=== PATIENT | female | born 1960 | race Caucasian/White ===

== ENCOUNTER 2020-01-10 19:18 | Inpatient (IN) ==
[2020-01-10] MEDS ORDERED: 0.9 % SODIUM CHLORIDE 1,000 ML IV ONE ×2 (19:59→21:47)
--- NOTE | 2020-01-10 20:08 | Emergency Department Note ---
HPI General Chief complaint: Cold/Flu Symptoms Stated complaint: fevers, high BP, and decreased appetite, headache Time Seen by Provider: 01/10/20 19:22 Source: patient Mode of arrival: ambulatory Limitations: no limitations History of Present Illness HPI Narrative: Narrative: 59-year-old female patient presents emergency department with chief complaint of subjective fevers at home, generalized malaise, loss of appetite, and sleeplessness. Patient tells me she felt feverish at home and took her temperature. She noticed it was 100. She is afebrile in triage now at 98.5. Patient tells me she recently lost her of 16 years on 12/07. Since that time she has had decreased appetite and inability to sleep. She has been in contact her primary care provider told her to use melatonin. She is tried this without success. She denies any known exposure to the novel coronavirus. She does admit to daily smoking. This is increased to 1.5 packs daily since the loss of her . ROS: Denies systemic illness, sweats, or chills. Denies headaches, tinnitus, or vision changes. Denies runny nose, sinus congestion, or cough. Denies shortness of breath. Denies retrosternal chest pain or palpitations. Denies abdominal pain, nausea, vomiting, or diarrhea. Denies dysuria, hematuria, urinary frequency, or urinary urgency. Denies generalized or focal weakness. Related Data Home Medications Medication Instructions Recorded Confirmed calcium-mag oxide-vitamin D3 250 2 cap PO QDAY 10/07/15 01/10/20 mg-125 mg-200 unit capsule cholecalciferol (vitamin D3) 50 2,000 unit PO QDAY 10/07/15 01/10/20 mcg (2,000 unit) capsule milk thistle 175 mg capsule 350 mg PO QDAY 10/07/15 01/10/20 kmjvhwtflbqe-impoauim-lyfxac 1 tab PO QDAY 10/07/15 01/10/20 naproxen sodium 220 mg tablet 440 mg PO Q4H tab 10/10/15 01/10/20 Previous Rx's Medication Instructions Recorded albuterol sulfate 90 mcg/actuation 2 puff INHALATION Q4-6HP PRN #1 04/04/19 aerosol inhaler inhaler ferrous sulfate 325 mg (65 mg 325 mg PO QDAY #90 tab 10/31/19 iron) tablet lisinopril 5 mg tablet 5 mg PO QDAY #90 tab 10/05/19 omeprazole 20 mg capsule,delayed 20 mg PO QDAY #90 cap 12/31/19 release simvastatin 10 mg tablet 10 mg PO QPM #90 tab 12/31/19 Allergies Allergy/AdvReac Type Severity Reaction Status Date / Time No Known Drug Allergies Allergy Verified 04/04/19 15:15 Review of Systems ROS ROS Narrative: Narrative: All systems ED: reviewed and negative except as stated. [facility] Narrative Patient History Narrative: Narrative: Medical/Surgical/Family History All Active Problems (Updated 01/10/20 @ 22:22 by Sonu Bernard PA-C) Fracture of clavicle (Acute) Back pain (Acute) Thoracic back pain (Acute) COPD (chronic obstructive pulmonary disease) (Acute) Fracture of rib (Acute) Hyponatremia (Acute) Hypokalemia (Acute) Adult failure to thrive (Acute) Grieving (Acute) Heart murmur (Chronic) Encounter for smoking cessation counseling (Acute) Insomnia (Chronic) Hot flashes (Chronic) Depression (Chronic) HLD (hyperlipidemia) (Chronic) High triglycerides (Acute) Hypertension (Acute) Diarrhea (Acute) Low back pain (Acute) Tobacco abuse (Chronic) Left leg pain (Chronic) Hip pain, left (Chronic) Weakness (Chronic) Osteoporosis (Chronic) Joint pain (Chronic) Muscle pain (Chronic) Arthritis (Chronic) Anemia (Chronic) Acid reflux (Chronic) Medical History Abdominal pain, left lower quadrant (Resolved) Acid reflux (Chronic) 2014 Anemia (Chronic) Arthritis (Chronic) 2010 Depression (Chronic) Gallbladder problem (Resolved) 2013 removed Hip pain, left (Chronic) 2015 HLD (hyperlipidemia) (Chronic) Hot flashes (Chronic) Insomnia (Chronic) Joint pain (Chronic) 2010 Left leg pain (Chronic) 2015 Muscle pain (Chronic) 2011 Osteoporosis (Chronic) 2009, dexa 2015, continue calcium and vitamin D Tobacco abuse (Chronic) Weakness (Chronic) 2014 Surgical History H/O colonoscopy (Acute) 12/2015 with hyperplastic polyp removal, repeat 10 years H/O hand surgery (Chronic) 2014 Finger surgery History of cholecystectomy (Chronic) 2013 History of hernia surgery (Chronic) 1963 Hx of shoulder surgery (Chronic) 2009 S/P wrist surgery (Chronic) 2015 left wrist Family History Sister Arthritis Essential hypertension Mother Malignant neoplasm of breast Grandfather Malignant neoplasm of brain Malignant neoplasm of throat Grandmother-maternal Diabetes mellitus Father Essential hypertension Aunt Cerebrovascular accident (CVA) Social History Smoking Status: Current every day smoker Alcohol Intake Frequency: a few times a week Substance Use: marijuana Exam Narrative Narrative: Narrative: General Limitations: no limitations General appearance: other (Well-developed, chronically ill and frail appearing 59-year-old female patient sitting upright on the emergency room [facility] in no acute respiratory distress.) Head Head: atraumatic and normocephalic Eye Eye: Present normal appearance, PERRL and EOMI; Absent scleral icterus and co njunctival injection ENT ENT: Present normal oropharynx and mucous membranes moist Neck Neck: Present trachea midline; Absent lymphadenopathy Chest Chest: Present symmetric chest wall rise Respiratory Respiratory: Present prolonged expiratory phase and decreased breath sounds (Rhonchi heard throughout the chest.); Absent normal lung sounds bilaterally, respiratory distress, rales/crackles, wheezes, stridor and accessory muscle use Cardiovascular Cardiovascular: Present regular rate, normal rhythm and systolic murmur; Absent diastolic murmur Adbominal Abdominal: Present soft; Absent distention, tenderness, guarding, rebound, rigidity, organomegaly and mass Extremities Extremities: Present normal inspection, full ROM and normal capillary refill; Absent pedal edema Neurological Neurological: Present alert and oriented X3 Psychiatric Psychiatric: Present normal affect, depressed and tearful Skin Skin: Present warm, dry and normal color Course Course Course Narrative: When questioned patient chief complaint appears to be her inability to sleep or eat since the loss of her . However she does have subjective fevers at home. This, coupled with her history of smoking, I am going to order a 2 view chest x-ray and screening laboratory studies. Patient was provided normal saline as a 1000 mL bolus. Reevaluation(s) Reevaluation #1: A review of the patient's diagnostics thus far show the following: CMP sodium 113, potassium 3.2, chloride 78, CO2 21, BUN 2, creatinine 0.4, all others normal limits. After reviewing the available data I discussed this case with my collaborative physician (Dr. Dominguez) at this time Dr. Dominguez recommended starting normal saline. Patient will likely need to be admitted to the hospital for further evaluation and management. After 1 L of fluid repeat chemistry panel showed improved sodium to 118. It is now shift change and I have given full patient report to my collaborating physician who has assumed the patient healthcare. All further treatment decisions, modalities, and ultimate patient disposition will be carried out by Dr. Dominguez. Time: 22:20 Vital Signs Vital signs: Vital Signs Temperature 98.5 F 01/10/20 19:20 Pulse Rate 103 H 01/10/20 19:20 Respiratory Rate 18 01/10/20 19:20 Blood Pressure 163/91 01/10/20 19:20 Pulse Oximetry (%) 98 01/10/20 19:20 Temperature 98.5 F 01/10/20 19:20 Pulse Rate 88 01/10/20 21:28 Respiratory Rate 18 01/10/20 20:43 Blood Pressure 146/86 01/10/20 21:28 Pulse Oximetry (%) 96 01/10/20 21:28 MDM MDM Narrative Medical decision making narrative: Narrative: Lab Data Result diagrams: 01/10/20 20:16 01/10/20 20:16 Labs: Lab Results 01/10/20 Range/Units 20:16 Sodium 113 L* (133-145) mmol/L Potassium 3.2 L (3.3-5.1) mmol/L Chloride 78 L (96-108) mmol/L Carbon Dioxide 21 L (22-30) mmol/L Anion Gap 14.0 (8-16) BUN 2 L (6-20) mg/dl Creatinine 0.4 L (0.6-1.1) mg/dl GFR Calculation 114 Glucose 88 (70-105) mg/dL Calcium 9.1 (8.6-10.4) mg/dl Total Bilirubin 0.3 (0.0-1.0) mg/dL AST 23 (0-37) U/l ALT 17 (0-40) U/l Alkaline Phosphatase 83 (39-117) U/L Total Protein 6.9 (5.9-8.4) gm/dL Albumin 4.5 (3.2-5.2) gm/dL Globulin 2.4 (2.2-3.7) gm/dL Albumin/Globulin Ratio 1.9 (1.0-2.3) Discharge Plan Patient/Caregiver Discharge Instructions Pt seen by PRIMARY CARE PROVIDER/PA only: No (Dr. Dominguez) Clinical Impression: Hyponatremia, Tobacco abuse, Hypokalemia, Adult failure to thrive, Grieving Patient Disposition: Still a Patient Condition: Fair Follow up with: Angie Pacheco DO [Primary Care Provider] - Prescriptions: No Action ferrous sulfate [Iron (ferrous sulfate)] 325 mg (65 mg iron) tablet 325 mg PO QDAY Qty: 90 RF: 0 lisinopril 5 mg tablet 5 mg PO QDAY Qty: 90 RF: 1 simvastatin 10 mg tablet 10 mg PO QPM Qty: 90 RF: 0 omeprazole 20 mg capsule,delayed release(DR/EC) 20 mg PO QDAY Qty: 90 RF: 1 albuterol sulfate 90 mcg/actuation HFA aerosol inhaler 2 puff INHALATION Q4-6HP PRN (Reason: Cough) Qty: 1 RF: 0 naproxen sodium [Aleve] 220 mg tablet 440 mg PO Q4H RF: 0 oouiwetzrrkk-fehrsuvo-ulnypm tablet 1 tab PO QDAY RF: 0 cholecalciferol (vitamin D3) 2,000 unit capsule 2,000 unit PO QDAY RF: 0 calcium-mag oxide-vitamin D3 250-125-200 mg-mg-unit capsule 2 cap PO QDAY RF: 0 milk thistle 175 mg capsule 350 mg PO QDAY RF: 0
[2020-01-10 21:10] LABS: ALT/SGPT 17 U/l (0-40); AST/SGOT 23 U/l (0-37); Albumin 4.5 gm/dL (3.2-5.2); Albumin/Globulin Ratio 1.9 (1.0-2.3); Alkaline Phosphatase 83 U/L (39-117); Bilirubin,Total 0.3 mg/dL (0.0-1.0); Blood Urea Nitrogen 2 mg/dl (6-20); Calcium 9.1 mg/dl (8.6-10.4); Carbon Dioxide 21 mmol/L (22-30); Globulin 2.4 gm/dL (2.2-3.7); Glomerular Filtration Rate 114; Glucose 88 mg/dL (70-105)
[2020-01-10 21:21] LABS: Chloride 78 mmol/L (96-108)
[2020-01-10 22:24] LABS: Basophils # (Auto) 0.02 K/mcL (0.00-0.30); Basophils % (Auto) 0.2 % (0.0-2.0); Eosinophils # (Auto) 0.02 K/mcL (0.00-0.70); Eosinophils % (Auto) 0.2 % (0.0-7.0); Granulocytes % (Auto) 59.1 % (38.0-78.0); Lymphocytes # (Auto) 2.39 K/mcL (1.50-4.80); Lymphocytes % (Auto) 29.5 % (15.5-49.0); Mean Corpuscular HGB Conc 31.6 g/dL (31.0-36.0); Mean Platelet Volume 10.6 fL (7.4-10.4); Monocytes # (Auto) 0.89 K/mcL (0.10-0.90); Platelet Count 181 K/mcL (140-440); WBC 8.1 K/mcL (4.50-11.00)
[2020-01-10] MEDS ORDERED: ONDANSETRON 4 MG/2 ML VIAL IV ONE (22:27)
[2020-01-10 22:31] LABS: POC Blood Urea Nitrogen < 3 mg/dl (6-20); POC CO2 19 mmol/L (22-30); POC Calcium, Ionized 1.08 mmol/L (1.16-1.32); POC Chloride 85 mmol/L (96-108); POC Creatinine 0.2 mg/dl (0.6-1.1); POC Glucose, Random 83 mg/dL (70-105); POC Potassium 3.2 mmol/L (3.3-5.1); POC Sodium 118 mmol/L (133-145)
--- NOTE | 2020-01-10 22:31 | Emergency Department Note ---
HPI General Chief complaint: Cold/Flu Symptoms Stated complaint: fevers, high BP, and decreased appetite, headache Time Seen by Provider: 01/10/20 19:22 Source: patient Mode of arrival: ambulatory Limitations: no limitations History of Present Illness HPI Narrative: Narrative:Patient is checked out to me at shift change by Sonu Bernard PA-C. I reviewed his note as well as discussed the patient with him.Agree with his evaluation Management and documentation Related Data Home Medications Medication Instructions Recorded Confirmed cholecalciferol (vitamin D3) 50 2,000 unit PO QDAY 10/07/15 01/11/20 mcg (2,000 unit) capsule milk thistle 175 mg capsule 350 mg PO QDAY 10/07/15 01/11/20 ibuprofen [Advil] 200 mg PO Q4-6HP PRN 01/11/20 01/11/20 mv-mn-folic ac-vit K-herb 289 1 tab PO DAILY 01/11/20 01/11/20 [Alive Once Daily Women 50 Plus] Previous Rx's Medication Instructions Recorded albuterol sulfate 90 mcg/actuation 2 puff INHALATION Q4-6HP PRN #1 04/04/19 aerosol inhaler inhaler ferrous sulfate 325 mg (65 mg 325 mg PO QDAY #90 tab 04/05/19 iron) tablet lisinopril 5 mg tablet 5 mg PO QDAY #90 tab 10/05/19 omeprazole 20 mg capsule,delayed 20 mg PO QDAY #90 cap 12/31/19 release simvastatin 10 mg tablet 10 mg PO QPM #90 tab 12/31/19 Allergies Allergy/AdvReac Type Severity Reaction Status Date / Time No Known Drug Allergies Allergy Verified 04/04/19 15:15 Review of Systems ROS ROS Narrative: Narrative: PFSH Narrative Patient History Narrative: Narrative: Medical/Surgical/Family History All Active Problems (Updated 01/10/20 @ 22:22 by Sonu Bernard PA-C) Fracture of clavicle (Acute) Back pain (Acute) Thoracic back pain (Acute) COPD (chronic obstructive pulmonary disease) (Acute) Fracture of rib (Acute) Hyponatremia (Acute) Hypokalemia (Acute) Adult failure to thrive (Acute) Grieving (Acute) Heart murmur (Chronic) Encounter for smoking cessation counseling (Acute) Insomnia (Chronic) Hot flashes (Chronic) Depression (Chronic) HLD (hyperlipidemia) (Chronic) High triglycerides (Acute) Hypertension (Acute) Diarrhea (Acute) Low back pain (Acute) Tobacco abuse (Chronic) Left leg pain (Chronic) Hip pain, left (Chronic) Weakness (Chronic) Osteoporosis (Chronic) Joint pain (Chronic) Muscle pain (Chronic) Arthritis (Chronic) Anemia (Chronic) Acid reflux (Chronic) Medical History Abdominal pain, left lower quadrant (Resolved) Acid reflux (Chronic) 2014 Anemia (Chronic) Arthritis (Chronic) 2010 Depression (Chronic) Gallbladder problem (Resolved) 2013 removed Hip pain, left (Chronic) 2015 HLD (hyperlipidemia) (Chronic) Hot flashes (Chronic) Insomnia (Chronic) Joint pain (Chronic) 2010 Left leg pain (Chronic) 2015 Muscle pain (Chronic) 2011 Osteoporosis (Chronic) 2009, dexa 2016, continue calcium and vitamin D Tobacco abuse (Chronic) Weakness (Chronic) 2014 Surgical History H/O colonoscopy (Acute) 12/2015 with hyperplastic polyp removal, repeat 10 years H/O hand surgery (Chronic) 2014 Finger surgery History of cholecystectomy (Chronic) 2013 History of hernia surgery (Chronic) 1963 Hx of shoulder surgery (Chronic) 2010 S/P wrist surgery (Chronic) 2015 left wrist Family History Sister Arthritis Essential hypertension Mother Malignant neoplasm of breast Grandfather Malignant neoplasm of brain Malignant neoplasm of throat Grandmother-maternal Diabetes mellitus Father Essential hypertension Aunt Cerebrovascular accident (CVA) Social History Smoking Status: Current every day smoker Alcohol Intake Frequency: a few times a week Substance Use: marijuana Exam Narrative Narrative: Narrative: General Limitations: no limitations General appearance: other (Well-developed, chronically ill and frail appearing 59-year-old female patient sitting [facility] no acute respiratory distress.) Course Vital Signs Vital signs: Vital Signs Temperature 98.5 F 01/10/20 19:20 Pulse Rate 103 H 01/10/20 19:20 Respiratory Rate 18 01/10/20 19:20 Blood Pressure 163/91 01/10/20 19:20 Pulse Oximetry (%) 98 08/06/20 19:20 Temperature 98.5 F 01/11/20 01:03 Pulse Rate 68 01/11/20 01:03 Respiratory Rate 18 01/11/20 01:03 Blood Pressure 163/91 01/11/20 01:03 Pulse Oximetry (%) 94 01/11/20 01:03 [facility] MDM Narrative Medical decision making narrative: Narrative:Taking checkout from Sonu Bernard PA-C - Ordered urine labs for fractional excretion of sodium, Magnesium. Patient will need to come in the hospital for further care and evaluation. She is already had 1 L of IV fluid. Suspect this is acute on chronic hyponatremia from malnutrition- Patient states that last time she had a good meal was probably 2 weeks ago We called out to Dr. Escobar, supervisor garage. Also called Dr. Delarosa, hospitalist. I discussed the case with him And he agreed except the patient for further care and evaluation in the hospital. He advised me to stop giving her fluid as her sodium had gone up to 118 on Recheck POC We Allowed the patient to eat a boxed lunch along with some Jell-O and soda. She states that she has not slept well in a long time. We will give her some Ambien to sleep in the hospital Lab Data Result diagrams: 01/10/20 20:16 01/10/20 20:16 Labs: Lab Results 01/10/20 01/10/20 01/10/20 Range/Units 20:16 20:16 21:38 WBC 8.1 (4.50-11.00) K/mcL RBC TNP Hgb 12.0 (11.2-15.7) g/dL Hct 38.0 (34.1-44.9) % POC Hct 33.0 L (36.0-48.0) % MCV TNP MCH TNP MCHC 31.6 (31.0-36.0) g/dL RDW TNP Plt Count 181 (140-440) K/mcL MPV 10.6 H (7.4-10.4) fL Gran % 59.1 (38.0-78.0) % Lymph % (Auto) 29.5 (15.5-49.0) % [place] % (Auto) 11.0 (1.0-12.0) % Eos % (Auto) 0.2 (0.0-7.0) % Baso % (Auto) 0.2 (0.0-2.0) % Gran # 4.77 (1.80-8.00) K/mcL Lymph # (Auto) 2.39 (1.50-4.80) K/mcL [place] # (Auto) 0.89 (0.10-0.90) K/mcL Eos # (Auto) 0.02 (0.00-0.70) K/mcL Baso # (Auto) 0.02 (0.00-0.30) K/mcL POC Sodium 118 L* (133-145) mmol/L Sodium 113 L* (133-145) mmol/L POC Potassium 3.2 L (3.3-5.1) mmol/L Potassium 3.2 L (3.3-5.1) mmol/L POC Chloride 85 L (96-108) mmol/L Chloride 78 L (96-108) mmol/L Carbon Dioxide 21 L (22-30) mmol/L POC Total CO2 19 L (22-30) mmol/L Anion Gap 14.0 (8-16) POC BUN < 3 L (6-20) mg/dl BUN 2 L (6-20) mg/dl Creatinine 0.4 L (0.6-1.1) mg/dl POC Creatinine 0.2 L (0.6-1.1) mg/dl GFR Calculation 114 Glucose 88 (70-105) mg/dL POC Glucose 83 (70-105) mg/dL Calcium 9.1 (8.6-10.4) mg/dl POC WB Ioniz Calcium 1.08 L (1.16-1.32) mmol/L Magnesium (1.6-2.5) mg/dL Total Bilirubin 0.3 (0.0-1.0) mg/dL AST 23 (0-37) U/l ALT 17 (0-40) U/l Alkaline Phosphatase 83 (39-117) U/L Total Protein 6.9 (5.9-8.4) gm/dL Albumin 4.5 (3.2-5.2) gm/dL Globulin 2.4 (2.2-3.7) gm/dL Albumin/Globulin Ratio 1.9 (1.0-2.3) Urine Color Urine Appearance Urine pH (5.0-9.0) Ur Specific [place] (1.000-1.035) Urine Protein (NEG) mg/dL Urine Glucose (UA) (NEG) mg/dL Urine Ketones (NEG) mg/dL Urine Occult Blood (<0.03) mg/dL Urine Nitrate (NEG) Urine Bilirubin (NEG) mg/dL Urine Urobilinogen (NEG) mg/dL Ur Leukocyte Esterase (NEG) /uL Urine RBC (0-1) /hpf Urine WBC (0-4) /hpf Ur Squamous Epith Cells (0-4) /hpf Urine Bacteria (0) /hpf Ur Culture Indicated? Ur Random Creatinine mg/dl Ur Random Sodium mmol/L 01/10/20 01/10/20 01/10/20 Range/Units 22:20 22:48 22:50 WBC (4.50-11.00) K/mcL RBC Hgb (11.2-15.7) g/dL Hct (34.1-44.9) % POC Hct (36.0-48.0) % MCV MCH MCHC (31.0-36.0) g/dL RDW Plt Count (140-440) K/mcL MPV (7.4-10.4) fL Gran % (38.0-78.0) % Lymph % (Auto) (15.5-49.0) % [place] % (Auto) (1.0-12.0) % Eos % (Auto) (0.0-7.0) % Baso % (Auto) (0.0-2.0) % Gran # (1.80-8.00) K/mcL Lymph # (Auto) (1.50-4.80) K/mcL [place] # (Auto) (0.10-0.90) K/mcL Eos # (Auto) (0.00-0.70) K/mcL Baso # (Auto) (0.00-0.30) K/mcL POC Sodium (133-145) mmol/L Sodium (133-145) mmol/L POC Potassium (3.3-5.1) mmol/L Potassium (3.3-5.1) mmol/L POC Chloride (96-108) mmol/L Chloride (96-108) mmol/L Carbon Dioxide (22-30) mmol/L POC Total CO2 (22-30) mmol/L Anion Gap (8-16) POC BUN (6-20) mg/dl BUN (6-20) mg/dl Creatinine (0.6-1.1) mg/dl POC Creatinine (0.6-1.1) mg/dl GFR Calculation Glucose (70-105) mg/dL POC Glucose (70-105) mg/dL Calcium (8.6-10.4) mg/dl POC WB Ioniz Calcium (1.16-1.32) mmol/L Magnesium 1.3 L (1.6-2.5) mg/dL Total Bilirubin (0.0-1.0) mg/dL AST (0-37) U/l ALT (0-40) U/l Alkaline Phosphatase (39-117) U/L Total Protein (5.9-8.4) gm/dL Albumin (3.2-5.2) gm/dL Globulin (2.2-3.7) gm/dL Albumin/Globulin Ratio (1.0-2.3) Urine Color Colorless Urine Appearance Clear Urine pH 7.0 (5.0-9.0) Ur Specific [place] 1.002 (1.000-1.035) Urine Protein Neg (NEG) mg/dL Urine Glucose (UA) Negative (NEG) mg/dL Urine Ketones Neg (NEG) mg/dL Urine Occult Blood 0.2 A (<0.03) mg/dL Urine Nitrate Neg (NEG) Urine Bilirubin Neg (NEG) mg/dL Urine Urobilinogen Neg (NEG) mg/dL Ur Leukocyte Esterase Neg (NEG) /uL Urine RBC 0 (0-1) /hpf Urine WBC 1 (0-4) /hpf Ur Squamous Epith Cells < 1 (0-4) /hpf Urine Bacteria 0 (0) /hpf Ur Culture Indicated? No Ur Random Creatinine 11.3 mg/dl Ur Random Sodium < 20 mmol/L Discharge Plan Patient/Caregiver Discharge Instructions Pt seen by GREETING CARD MAKER/PA only: No (Dr. Dominguez) Clinical Impression: Hyponatremia, Tobacco abuse, Hypokalemia, Adult failure to thrive, Grieving Patient Disposition: Xfer As Inpt ([facility]) Condition: Fair Discharge Date/Time: 01/10/20 23:53
[2020-01-10] MEDS ORDERED: ONDANSETRON 4 MG ODT TABLET SL PRN (23:52)
[2020-01-10] MEDS ORDERED: ACETAMINOPHEN 650 MG/65 ML BOTTLE IV PRN (23:52)
[2020-01-10] MEDS ORDERED: ALBUTEROL SULFATE 200 PUFF INHALER INH PRN (23:52)
[2020-01-10] MEDS ORDERED: BISACODYL 10 MG SUPP.RECT PR PRN (23:52)
[2020-01-10] MEDS ORDERED: METOPROLOL TARTRATE 5 MG/5 ML VIAL IV PRN (23:52)
[2020-01-10] MEDS ORDERED: POTASSIUM CHLORIDE 40 MEQ in DEXTROSE 5% IN WATER 500 ML IV PRN (23:52)
[2020-01-10] MEDS ORDERED: ONDANSETRON 4 MG/2 ML VIAL IV PRN (23:52)
[2020-01-10] MEDS ORDERED: MAGNESIUM SULFATE 2 GM/50 ML BAG IV PRN (23:52)
[2020-01-10] MEDS ORDERED: POTASSIUM CHLORIDE 20 MEQ PACKET PO PRN (23:52)
[2020-01-10] MEDS ORDERED: POLYETHYLENE GLYCOL 3350 17 GM PACKET PO PRN (23:52)
[2020-01-10] MEDS ORDERED: 0.9 % SODIUM CHLORIDE 1,000 ML IV SCH (23:52)
[2020-01-10] MEDS ORDERED: MELATONIN 3 MG TABLET PO PRN (23:52)
[2020-01-11 00:16] LABS: Creatinine,Urine Random 11.3 mg/dl; Sodium, Urine Random < 20 mmol/L
[2020-01-11 00:16] LABS: Appearance,Urine CLEAR; Bacteria,Urine 0 /hpf (0); Bilirubin,Urine NEG (NEG); Color,Urine COLORLESS; Culture Indicated,Urine NO; Glucose,Urine (UA) NEGATIVE (NEG); Ketones,Urine NEG (NEG); Leukocyte Esterase,Urine NEG /uL (NEG); Nitrate,Urine NEG (NEG); Protein,Urine NEG (NEG); Specific Gravity,Urine 1.002 (1.000-1.035); Urine Blood 0.2 mg/dL (<0.03); Urine RBC 0 /hpf (0-1); Urine Squamous Epithelial Cell < 1 /hpf (0-4); Urine WBC 1 /hpf (0-4); Urobilinogen,Urine NEG (NEG)
[2020-01-11] MEDS ORDERED: POTASSIUM CHLORIDE 20 MEQ PACKET ONE (00:18)
[2020-01-11] MEDS ORDERED: ZOLPIDEM 5 MG TABLET ONE (00:18)
[2020-01-11] MEDS ORDERED: MAGNESIUM SULFATE 2 GM/50 ML BAG IV ONE (00:18)
--- NOTE | 2020-01-11 00:36 | Internal Med History&Physical ---
HPI History of Present Illness Patient information: Note initiated : 01/10/20 at 11:16 pm Service Date, if different from initiated Date: [] Patient: Cheri Brown a 59 y/o F admitted on for fevers, high BP, and decreased appetite, headache. Chief Complaint: Weakness headache fever History of present illness: Ms. Brown is a 59 year old F with a history of COPD/HTN/HLD/tobacco dependence/depression who presents to the ER with multitude of symptoms including generalized weakness, malaise loss of appetite weakness and over 15 pound weight loss. Patient lost her in December and has been grief stricken. She has associated insomnia, anxiety. She also takes care of her elderly parents. She has continued to deteriorate the last couple of weeks prompting him to come to the ER for evaluation Initial work-up was consistent with sodium of 113/BMI of 19. She was administered 2 L crystalloid bolus. However in light of critical hyponatremia requiring admission Hospital service was consulted At the time of my evaluation patient appears lethargic and withdrawn. Denies diarrhea, abdominal pain, dysuria, bloody stool. She also endorses to early satiety and feeling of nausea every time she attempts to eat but no actual emesis. Denies alcoholism but continues to smoke Review of systems 10 point review of system was performed and is negative except for ones discussed above PFSH [facility] Medical History Abdominal pain, left lower quadrant (Resolved) Acid reflux (Chronic) 2014 Anemia (Chronic) Arthritis (Chronic) 2010 Depression (Chronic) Gallbladder problem (Resolved) 2012 removed Hip pain, left (Chronic) 2014 HLD (hyperlipidemia) (Chronic) Hot flashes (Chronic) Insomnia (Chronic) Joint pain (Chronic) 2010 Left leg pain (Chronic) 2015 Muscle pain (Chronic) 2011 Osteoporosis (Chronic) 2009, dexa 2016, continue calcium and vitamin D Tobacco abuse (Chronic) Weakness (Chronic) 2013 Surgical History H/O colonoscopy (Acute) 12/2015 with hyperplastic polyp removal, repeat 10 years H/O hand surgery (Chronic) 2014 Finger surgery History of cholecystectomy (Chronic) 2013 History of hernia surgery (Chronic) 1963 Hx of shoulder surgery (Chronic) 2010 S/P wrist surgery (Chronic) 2015 left wrist Family History Sister Arthritis Essential hypertension Mother Malignant neoplasm of breast Grandfather Malignant neoplasm of brain Malignant neoplasm of throat Grandmother-maternal Diabetes mellitus Father Essential hypertension Aunt Cerebrovascular accident (CVA) Social History (Updated 04/06/19 @ 17:16 by Angie Pacheco, DO) adopted: No household members: significant other housing: house marital status: life partner education level: high school service: No occupational status: disabled and other occupation: disability due to osteoporosis (diagnosed in 2008) pets and animals: Yes pets and animals: cat(s) and dog(s) leisure activities: sports, fishing and other hx recent travel: No sexually active: Yes other: camping, gardening well-balanced diet: rarely or never high-fat food intake: 0-1 times daily daily servings fruits/ve-1 daily servings of milk/calcium: 0-1 eating out: rarely or never during the past year weight has: increased > 10 lbs physical activity: bicycling and other frequency: other smoking status: Current every day smoker tobacco type: cigarettes per day: 40 quit status: considering quitting counseling given: provider counseling, support medications and support program alcohol intake frequency: a few times a week substance use type: marijuana special aiyana needs: No seatbelt use: always helmet use: Yes water heater temp set < 120 deg: Yes working smoke detector in home: Yes fire extinguisher in home: Yes carbon monox detector in home: Yes (educated pt. to get one) firearms in home: No MEDS/ALLERGIES Home Medications and Allergies Home Medications Medication Instructions Recorded Confirmed Type cholecalciferol (vitamin D3) 50 2,000 unit PO QDAY 10/07/15 01/11/20 History mcg (2,000 unit) capsule milk thistle 175 mg capsule 350 mg PO QDAY 10/07/15 01/11/20 History albuterol sulfate 90 mcg/actuation 2 puff INHALATION Q4-6HP PRN #1 04/04/19 01/11/20 Rx aerosol inhaler inhaler ferrous sulfate 325 mg (65 mg 325 mg PO QDAY #90 tab 04/05/19 01/11/20 Rx iron) tablet lisinopril 5 mg tablet 5 mg PO QDAY #90 tab 10/05/19 01/11/20 Rx omeprazole 20 mg capsule,delayed 20 mg PO QDAY #90 cap 12/31/19 01/11/20 Rx release simvastatin 10 mg tablet 10 mg PO QPM #90 tab 12/31/19 01/11/20 Rx ibuprofen [Advil] 200 mg PO Q4-6HP PRN 01/11/20 01/11/20 History mv-mn-folic ac-vit K-herb 289 1 tab PO DAILY 01/11/20 01/11/20 History [Alive Once Daily Women 50 Plus] Allergies Allergy/AdvReac Type Severity Reaction Status Date / Time No Known Drug Allergies Allergy Verified 04/04/19 15:15 EXAM Constitutional Vitals: Temp Pulse Resp BP Pulse Ox 98.5 F 68 18 145/68 94 01/10/20 19:20 01/10/20 22:55 01/10/20 22:55 01/10/20 22:55 01/10/20 22:55 Thin individual Head normocephalic temporal wasting Oral cavity moist No ear nose discharge Eye movement symmetrical Neck supple no lymphadenopathy S1-S2 occasionally irregular Chest, tachypnea Nondistended nontender abdomen Lower extremity no cyanosis clubbing or joint swelling Skin no suspicious lesion Psych anxious but cooperative Neuro normal higher function DATA Data Completed and Pending Labs on day of discharge: Labs from last 24 hours 01/10/20 01/10/20 01/10/20 22:50 22:48 22:20 WBC RBC Hgb Hct POC Hct MCV MCH MCHC RDW Plt Count MPV Gran % Lymph % (Auto) [place] % (Auto) Eos % (Auto) Baso % (Auto) Gran # Lymph # (Auto) [place] # (Auto) Eos # (Auto) Baso # (Auto) POC Sodium Sodium POC Potassium Potassium POC Chloride Chloride Carbon Dioxide POC Total CO2 Anion Gap POC BUN BUN Creatinine POC Creatinine GFR Calculation Glucose POC Glucose Calcium POC WB Ioniz Calcium Magnesium 1.3 L Total Bilirubin AST ALT Alkaline Phosphatase Total Protein Albumin Globulin Albumin/Globulin Ratio Prealbumin Pending Urine Color Pending Urine Appearance Pending Urine pH Pending Ur Specific [place] Pending Urine Protein Pending Urine Glucose (UA) Pending Urine Ketones Pending Urine Occult Blood Pending Urine Nitrate Pending Urine Bilirubin Pending Urine Urobilinogen Pending Ur Leukocyte Esterase Pending Ur Random Creatinine Pending Ur Random Sodium Pending 01/10/20 01/10/20 01/10/20 21:38 20:16 20:16 WBC 8.1 RBC TNP Hgb 12.0 Hct 38.0 POC Hct 33.0 L MCV TNP MCH TNP MCHC 31.6 RDW TNP Plt Count 181 MPV 10.6 H Gran % 59.1 Lymph % (Auto) 29.5 [place] % (Auto) 11.0 Eos % (Auto) 0.2 Baso % (Auto) 0.2 Gran # 4.77 Lymph # (Auto) 2.39 [place] # (Auto) 0.89 Eos # (Auto) 0.02 Baso # (Auto) 0.02 POC Sodium 118 L* Sodium 113 L* POC Potassium 3.2 L Potassium 3.2 L POC Chloride 85 L Chloride 78 L Carbon Dioxide 21 L POC Total CO2 19 L Anion Gap 14.0 POC BUN < 3 L BUN 2 L Creatinine 0.4 L POC Creatinine 0.2 L GFR Calculation 114 Glucose 88 POC Glucose 83 Calcium 9.1 POC WB Ioniz Calcium 1.08 L Magnesium Total Bilirubin 0.3 AST 23 ALT 17 Alkaline Phosphatase 83 Total Protein 6.9 Albumin 4.5 Globulin 2.4 Albumin/Globulin Ratio 1.9 Prealbumin Urine Color Urine Appearance Urine pH Ur Specific [place] Urine Protein Urine Glucose (UA) Urine Ketones Urine Occult Blood Urine Nitrate Urine Bilirubin Urine Urobilinogen Ur Leukocyte Esterase Ur Random Creatinine Ur Random Sodium A/P Narrative A/P Narrative: * hypovolemic hyponatremia-admit to monitored unit, urine/ser Osm, Q4h Na check. Target sodium rise 12 per 24-hour. Likely secondary to poor solute intake * weakness deconditioning and failure to thrive-complicated grief/early depression. Appetite stimulants. Aggressive directed therapies * Acute grief reaction-loss of spouse. Start Cymbalta/trazodone. * Failure to thrive/loss of appetite start Megace * History of COPD on bronchodilators * History of hypertension continue lisinopril * Lactic and statin * GERD PPI * Tobacco dependence, nicotine patch/tobacco cessation counseling * Insomnia on melatonin Plan * Inpatient admission * 4 hourly sodium checks/serum urine osmolarity * Antidepressants * PT OT/dietary intervention * Salt tabs * Pre-existing medical condition management home meds Time Spent With Patient Time: Total time spent is greater than 50% in coordination of care (as documented) at patient's floor/unit and/or counseling patient:
[2020-01-11] MEDS ORDERED: ACETAMINOPHEN 325 MG TABLET PO ONE (00:52)
[2020-01-11] MEDS ORDERED: NICOTINE 21 MG PATCH ONE (01:27)
[2020-01-11 02:07] LABS: Osmolality,Urine 71 mOsm/kg (80-1000)
[2020-01-11 02:22] LABS: Prealbumin 30.8 mg/dl (20-40)
--- NOTE | 2020-01-11 02:23 | XRay Report ---
CLINICAL INFORMATION: malaise, subjective fevers X 1 day. Hx of smoking. COMPARISON: 06/01/2018 FINDINGS: Heart size, mediastinum and pulmonary vessels are normal. Lungs are clear. No effusions mild T11 and L1 osteoporotic compression fractures show slight progression. IMPRESSION: 1. No acute cardiopulmonary disease. 2. Mild T11 and L1 compression fractures progressing since 2018 plain films. Consider DEXA scanning - this patient may benefit from medical therapy to prevent further bone loss Interpreted and Authenticated by: German Case 01/11/20
[2020-01-11] MEDS ORDERED: DEXTROSE 5% IN WATER 250 ML IV SCH ×2 (03:30→03:45)
[2020-01-11] MEDS: DEXTROSE 5%-1/2NS 1,000 ML IV SCH ×2 (03:30→23:32)
[2020-01-11] MEDS ORDERED: ZOLPIDEM 5 MG TABLET PO PRN (05:02)
[2020-01-11] MEDS: 0.9 % SODIUM CHLORIDE 10 ML SYRINGE IV SCH ×3 (05:34→20:17)
[2020-01-11 06:42] LABS: Hematocrit 27.9 % (34.1-44.9); Mean Cell Volume 89.1 fL (80.0-100.0); Mean Corpuscular HGB Conc 35.8 g/dL (31.0-36.0); Mean Platelet Volume 10.3 fL (7.4-10.4); Platelet Count 157 K/mcL (140-440); RBC 3.13 M/mcL (3.59-5.38); Red Cell Distribution Width 10.6 % (11.5-14.5); WBC 5.9 K/mcL (4.50-11.00)
[2020-01-11 06:46] LABS: Bilirubin,Direct < 0.2 mg/dL (0.0-0.3)
[2020-01-11 06:51] LABS: ALT/SGPT 13 U/l (0-40); AST/SGOT 18 U/l (0-37); Albumin 3.5 gm/dL (3.2-5.2); Albumin/Globulin Ratio 1.9 (1.0-2.3); Alkaline Phosphatase 60 U/L (39-117); Bilirubin,Total 0.3 mg/dL (0.0-1.0); Blood Urea Nitrogen 5 mg/dl (6-20); Calcium 8.2 mg/dl (8.6-10.4); Carbon Dioxide 21 mmol/L (22-30); Chloride 91 mmol/L (96-108); Globulin 1.8 gm/dL (2.2-3.7); Glomerular Filtration Rate 114; Glucose 102 mg/dL (70-105); Lactate Dehydrogenase 155 U/L (94-250); Phosphorous 2.7 mg/dL (2.7-4.5); Triglycerides 30 mg/dl (<150); Uric Acid 1.5 mg/dL (2.5-8.0)
[2020-01-11] MEDS: ACETAMINOPHEN 325 MG TABLET PO PRN ×3 (07:33→17:09)
[2020-01-11] MEDS: OMEPRAZOLE 20 MG CAPSULE PO SCH (07:33)
[2020-01-11] MEDS ORDERED: traZODone HCL 50 MG TABLET PO PRN (08:16)
[2020-01-11 08:22] LABS: Lymphocytes % 39 % (15-49); Monocytes % (Manual) 10 % (1-12); Platelet Estimate NORMAL (NORMAL); RBC Morphology NORMAL (NORMAL); Segmented Neutrophils % 51 % (38-78)
[2020-01-11] MEDS: MILK THISTLE PO SCH (09:09)
[2020-01-11] MEDS: MEGESTROL ACETATE 400 MG/10 ML ORAL.SUSP PO SCH (09:17)
[2020-01-11] MEDS: HEPARIN 5,000 UNIT/ML VIAL SQ SCH ×2 (09:17→20:16)
[2020-01-11] MEDS: FERROUS SULFATE 325 MG TABLET PO SCH (09:17)
[2020-01-11] MEDS: MULTIVIT,THER IRON,CA,FA & MIN 1 TABLET PO SCH (09:18)
[2020-01-11] MEDS: DULoxetine 30 MG CAPSULE PO SCH (09:18)
[2020-01-11] MEDS: CALCIUM W/VIT D3 500 MG TABLET PO SCH (09:18)
[2020-01-11] MEDS: LISINOPRIL 5 MG TABLET PO SCH (09:18)
[2020-01-11] MEDS: VITAMIN D3 1,000 UNIT TABLET PO SCH (09:21)
[2020-01-11] MEDS: DOCUSATE SODIUM 100 MG CAPSULE PO SCH ×2 (09:23→20:16)
--- NOTE | 2020-01-11 09:54 | Internal Med Progress Note ---
SUBJECTIVE Subjective Patient information: Note initiated : 01/11/20 at 9:49 am Service Date, if different from initiated Date: [] Patient: Cheri Brown a 59 y/o F admitted on 01/10/20 for fevers, high BP, and decreased appetite, headache. Chief Complaint: [] Ms. Brown is a 59 year old F with a history of COPD/HTN/HLD/tobacco dependence/depression who presents to the ER with multitude of symptoms including generalized weakness, malaise loss of appetite weakness and over 15 pound weight loss. Patient lost her in December and has been grief stricken. She has associated insomnia, anxiety. She also takes care of her elderly parents. She has continued to deteriorate the last couple of weeks prompting him to come to the ER for evaluation Initial work-up was consistent with sodium of 113/BMI of 19. She was administered 2 L crystalloid bolus. However in light of critical hyponatremia requiring admission Hospital service was consulted At the time of my evaluation patient appears lethargic and withdrawn. Denies diarrhea, abdominal pain, dysuria, bloody stool. She also endorses to early satiety and feeling of nausea every time she attempts to eat but no actual emesis. Denies alcoholism but continues to smoke 01/10-patient clinically improved. Sodium improved to 122. IV fluids switched to D5 half NS. Continue 4 hourly sodium checks. Started on Megace/Cymbalta/trazo done. Was unable to sleep more than 3 hours last night. Remains anxious Constitutional Vitals: Vital Signs Temp Pulse Resp BP Pulse Ox 98.7 F 79 23 H 145/73 99 01/11/20 08:01 01/11/20 08:01 01/11/20 08:01 01/11/20 08:01 01/11/20 08:01 Period Temp Pulse Resp BP Sys/Roberts Pulse Ox Last 24 Hr 98.4 F-98.7 F 67-103 17-23 125-163/66-91 94-99 Intake and Output 01/10/20 01/11/20 01/11/20 21:59 05:59 13:59 Intake Total 1000 1290 Output Total 1275 660 Balance 1000 15 -660 Weight 47.627 kg 47.627 kg thin individual nonlabored breathing Telemetry events Anxious Intake & Output: Intake & Output 01/10/20 01/11/2001/10/20 21:59 05:59 13:59 Intake Total 1000 1290 Output Total 1275 660 Balance 1000 15 -660 Weight 47.627 kg 47.627 kg Intake: IV 1000 1050 Sodium Chloride 0.9% 1,000 ml @ 1000 750 50 mls/hr IV .Q20H [facility] Rx#: [id number] Dextrose 5% in Water 250 ml @ 250 999 mls/hr IV .Q16M [facility] Rx#: [id number] MAGNESIUM SULFATE 2 gm In 50 ml 50 @ 0 mls/hr IV .[facility] Rx# :[id number] Oral 240 Output: Void Amount 1275 660 Other: Urine Appearance Clear Clear Urine Color Pale Dark Yellow Urine Odor Normal Normal # Bowel Movements 0 OBJ DATA Labs CBC & Chem 7: 01/11/20 05:05 01/11/20 05:05 Labs: Abnormal Lab Results 01/11/20 01/11/20 01/11/20 05:05 05:05 01:15 RBC 3.13 L Hgb 10.0 L Hct 27.9 L POC Hct RDW 10.6 L MPV POC Sodium Sodium 122 L 122 L POC Potassium Potassium POC Chloride Chloride 91 L Carbon Dioxide 21 L POC Total CO2 POC BUN BUN 5 L Creatinine 0.4 L POC Creatinine Osmolality Uric Acid 1.5 L Calcium 8.2 L POC WB Ioniz Calcium Magnesium Total Protein 5.3 L Globulin 1.8 L Urine Occult Blood Urine Osmolality 01/10/20 01/10/20 01/10/20 23:52 23:52 22:50 RBC Hgb Hct POC Hct RDW MPV POC Sodium Sodium POC Potassium Potassium POC Chloride Chloride Carbon Dioxide POC Total CO2 POC BUN BUN Creatinine POC Creatinine Osmolality 257 L Uric Acid Calcium POC WB Ioniz Calcium Magnesium Total Protein Globulin Urine Occult Blood 0.2 A Urine Osmolality 71 L 01/10/20 01/10/20 01/10/20 22:20 21:38 20:16 RBC Hgb Hct POC Hct 33.0 L RDW MPV POC Sodium 118 L* Sodium 113 L* POC Potassium 3.2 L Potassium 3.2 L POC Chloride 85 L Chloride 78 L Carbon Dioxide 21 L POC Total CO2 19 L POC BUN < 3 L BUN 2 L Creatinine 0.4 L POC Creatinine 0.2 L Osmolality Uric Acid Calcium POC WB Ioniz Calcium 1.08 L Magnesium 1.3 L Total Protein Globulin Urine Occult Blood Urine Osmolality 01/10/20 20:16 RBC Hgb Hct POC Hct RDW MPV 10.6 H POC Sodium Sodium POC Potassium Potassium POC Chloride Chloride Carbon Dioxide POC Total CO2 POC BUN BUN Creatinine POC Creatinine Osmolality Uric Acid Calcium POC WB Ioniz Calcium Magnesium Total Protein Globulin Urine Occult Blood Urine Osmolality Meds: Medications Acetaminophen (Tylenol) 650 mg PO Q4-6HP PRN; Protocol PRN Reason: Per Pain Protocol/Fever > 101 Last Admin: 01/11/20 07:33 Dose: 650 mg Documented by: Albuterol Sulfate (Ventolin) 2 puff INH Q4-6HP PRN PRN Reason: Cough Bisacodyl (Dulcolax) 10 mg MD Q2-3DAYS PRN PRN Reason: Constipation Calcium/Vitamin D (Calcium W/Vit D3) 1,000 mg PO DAILY [facility] Last Admin: 01/11/20 09:18 Dose: 1,000 mg Documented by: Docusate Sodium (Colace) 100 mg PO BID [facility] Last Admin: 01/11/20 09:23 Dose: Not Given Documented by: Duloxetine HCl (Cymbalta) 30 mg PO DAILY [facility] Last Admin: 01/11/20 09:18 Dose: 30 mg Documented by: Ferrous Sulfate (Ferrous Sulfate) 325 mg PO [facility] Last Admin: 01/11/20 09:17 Dose: 325 mg Documented by: Heparin Sodium (Porcine) (Heparin) 5,000 unit SQ Q12 [facility] Last Admin: 01/11/20 09:17 Dose: 5,000 unit Documented by: Acetaminophen (Ofirmev) 650 mg in 65 mls @ 130 mls/hr IV Q6HP PRN; Protocol PRN Reason: Per Pain Protocol/Fever > 101 Magnesium Sulfate (Magnesium Sulfate) 2 gm in 50 mls @ 50 mls/hr IV UD PRN PRN Reason: MG = or < 1.7 Potassium Chloride 40 meq/ (Dextrose) 520 mls @ 130 mls/hr IV UD PRN PRN Reason: K+ = or < 3.5 Dextrose/Sodium Chloride (Dextrose 5%-1/2ns Iv Solution) 1,000 mls @ 50 mls/hr IV .Q20H [facility] Last Admin: 01/11/20 03:30 Dose: 50 mls/hr Documented by: Iron Carb/Multivit/[place]/Folic Acid (Multivitamin W/Minerals) 1 tab PO DAILY [facility] Last Admin: 01/11/20 09:18 Dose: 1 tab Documented by: Lisinopril (Zestril) 5 mg PO QDAY [facility] Last Admin: 01/11/20 09:18 Dose: 5 mg Documented by: Megestrol Acetate (Megace) 400 mg PO DAILY [facility] Last Admin: 01/11/20 09:17 Dose: 400 mg Documented by: Metoprolol Tartrate (Lopressor) 5 mg IV Q5M PRN PRN Reason: Heart Rate > 140 bpm Naproxen (Naprosyn) 250 mg PO Q4HP PRN PRN Reason: Pain Omeprazole (Prilosec) 20 mg PO QAMAC [facility] Last Admin: 01/11/20 07:33 Dose: 20 mg Documented by: Ondansetron HCl (Zofran Odt) 4 mg SL Q4-6HP PRN; Protocol PRN Reason: Nausea And Vomiting Ondansetron HCl (Zofran) 4 mg IV Q4-6HP PRN; Protocol PRN Reason: Nausea And Vomiting Milk Thistle 350 Mg (Cap) 1 dose PO QDAY [facility] Last Admin: 01/11/20 09:09 Dose: Not Given Documented by: Polyethylene Glycol (Miralax) 17 gm PO DAILYP PRN PRN Reason: Constipation Potassium Chloride (Klor-Con) 40 meq PO DAILYP PRN PRN Reason: K+ < 3.5 Senna/Docusate Sodium (Senna Plus Tablet) 1 tab PO HS [facility] Simvastatin (Zocor) 10 mg PO QPM [facility] Sodium Chloride (Saline Flush) 10 ml IV Q8 [facility] Last Admin: 01/11/20 05:34 Dose: Not Given Documented by: Trazodone HCl (Desyrel) 50 mg PO HSP PRN PRN Reason: Insomnia Vitamin D (Vitamin D3) 2,000 unit PO DAILY [facility] Last Admin: 01/11/20 09:21 Dose: 2,000 unit Documented by: Zolpidem Tartrate (Ambien) 5 mg PO HSP PRN PRN Reason: Insomnia A/P Narrative A/P Narrative: * hypovolemic hyponatremia-urine osmolarity appropriately low, Q4h Na check. Sodium now at 142. Target sodium rise 12 per 24-hour. Secondary to poor solute intake. * weakness deconditioning and failure to thrive-complicated by grief/early depression. interventions * Acute grief reaction-loss of spouse. Continue Cymbalta/trazodone. * Failure to thrive/loss of appetite/protein calorie malnutrition-continue dietary supplements/Megace * History of COPD on bronchodilators * History of hypertension continue lisinopril * Hyperlipidemia continue statin * GERD PPI * Tobacco dependence, nicotine patch/tobacco cessation counseling * Insomnia -start trazodone * Prophylaxis heparin Plan * Continue sodium checks * 4 hourly sodium checks/serum urine osmolarity * Antidepressants * PT OT/dietary intervention * Salt tabs * Pre-existing medical condition management home meds Time Spent With Patient Time: Total time spent is greater than 50% in coordination of care (as documented) at patient's floor/unit and/or counseling patient: QUALITY VTE Deep Vein Thrombosis/Pulmonary Embolism Present on Admission: No
[2020-01-11 16:12] LABS: Mean Cell Volume 103.5 fL (80.0-100.0); RBC 3.67 M/mcL (3.59-5.38); Red Cell Distribution Width 10.2 % (11.5-14.5)
[2020-01-11] MEDS: NAPROXEN 250 MG TABLET PO PRN ×2 (16:16→20:17)
[2020-01-11] MEDS: SODIUM CHLORIDE 1 GM TABLET PO SCH ×2 (16:16→20:16)
[2020-01-11] MEDS ORDERED: SIMVASTATIN 10 MG TABLET PO SCH (21:00)
[2020-01-11] MEDS ORDERED: SENNOSIDES/DOCUSATE SODIUM 1 TAB TABLET PO SCH (21:00)
[2020-01-12] MEDS: ACETAMINOPHEN 325 MG TABLET PO PRN ×4 (00:50→19:37)
[2020-01-12] MEDS: 0.9 % SODIUM CHLORIDE 10 ML SYRINGE IV SCH ×3 (06:02→23:43)
[2020-01-12 06:39] LABS: Hemoglobin 9.6 g/dL (11.2-15.7); Mean Cell Volume 91.5 fL (80.0-100.0); Mean Corpuscular HGB Conc 35.6 g/dL (31.0-36.0); Mean Platelet Volume 10.9 fL (7.4-10.4); Platelet Count 156 K/mcL (140-440); RBC 2.95 M/mcL (3.59-5.38); WBC 6.9 K/mcL (4.50-11.00)
[2020-01-12 07:05] LABS: ALT/SGPT 10 U/l (0-40); AST/SGOT 11 U/l (0-37); Albumin 3.5 gm/dL (3.2-5.2); Albumin/Globulin Ratio 2.2 (1.0-2.3); Alkaline Phosphatase 57 U/L (39-117); Bilirubin,Direct < 0.2 mg/dL (0.0-0.3); Bilirubin,Total 0.2 mg/dL (0.0-1.0); Calcium 8.7 mg/dl (8.6-10.4); Carbon Dioxide 22 mmol/L (22-30); Chloride 96 mmol/L (96-108); Globulin 1.6 gm/dL (2.2-3.7); Glomerular Filtration Rate 114; Glucose 105 mg/dL (70-105); Lactate Dehydrogenase 110 U/L (94-250); Phosphorous 2.5 mg/dL (2.7-4.5); Triglycerides 50 mg/dl (<150); Uric Acid 1.7 mg/dL (2.5-8.0)
[2020-01-12 07:06] LABS: Blood Urea Nitrogen 3 mg/dl (6-20)
[2020-01-12] MEDS: OMEPRAZOLE 20 MG CAPSULE PO SCH (08:06)
[2020-01-12] MEDS: FERROUS SULFATE 325 MG TABLET PO SCH (08:06)
[2020-01-12 08:32] LABS: Eosinophils % (Manual) 2 % (0-7); Lymphocytes % 46 % (15-49); Monocytes % (Manual) 6 % (1-12); Platelet Estimate NORMAL (NORMAL); RBC Morphology NORMAL (NORMAL); Reactive Lymphocytes 2 % (0-2); Segmented Neutrophils % 44 % (38-78)
--- NOTE | 2020-01-12 08:38 | XRay Report ---
CLINICAL INFORMATION: Dyspnea COMPARISON: 01/10/2020 FINDINGS: Heart size, mediastinum and pulmonary vessels are normal. The lungs are clear. No effusions. IMPRESSION: Normal Interpreted and Authenticated by: German Case 01/12/20
[2020-01-12] MEDS: MEGESTROL ACETATE 400 MG/10 ML ORAL.SUSP PO SCH (08:52)
[2020-01-12] MEDS: MULTIVIT,THER IRON,CA,FA & MIN 1 TABLET PO SCH (08:54)
[2020-01-12] MEDS: HEPARIN 5,000 UNIT/ML VIAL SQ SCH ×2 (08:54→20:48)
[2020-01-12] MEDS: DOCUSATE SODIUM 100 MG CAPSULE PO SCH ×2 (08:57→20:47)
[2020-01-12] MEDS: DULoxetine 30 MG CAPSULE PO SCH (09:02)
[2020-01-12] MEDS: LISINOPRIL 5 MG TABLET PO SCH (09:03)
[2020-01-12] MEDS: SODIUM CHLORIDE 1 GM TABLET PO SCH ×3 (09:04→21:00)
[2020-01-12] MEDS: VITAMIN D3 1,000 UNIT TABLET PO SCH (09:09)
[2020-01-12] MEDS: CALCIUM W/VIT D3 500 MG TABLET PO SCH (09:10)
--- NOTE | 2020-01-12 10:38 | Internal Med Progress Note ---
SUBJECTIVE Subjective Patient information: Note initiated : 01/12/20 at 10:34 am Service Date, if different from initiated Date: [] Patient: Cheri Brown a 59 y/o F admitted on 01/10/20 for fevers, high BP, and decreased appetite, headache. Chief Complaint: Ms. Brown is a 59 year old F with a history of COPD/HTN/HLD/tobacco dependence/depression who presents to the ER with multitude of symptoms including generalized weakness, malaise loss of appetite weakness and over 15 pound weight loss. Patient lost her in December and has been grief stricken. She has associated insomnia, anxiety. She also takes care of her elderly parents. She has continued to deteriorate the last couple of weeks prompting him to come to the ER for evaluation Initial work-up was consistent with sodium of 113/BMI of 19. She was administered 2 L crystalloid bolus. However in light of critical hyponatremia requiring admission Hospital service was consulted At the time of my evaluation patient appears lethargic and withdrawn. Denies diarrhea, abdominal pain, dysuria, bloody stool. She also endorses to early satiety and feeling of nausea every time she attempts to eat but no actual emesis. Denies alcoholism but continues to smoke 01/10-patient clinically improved. Sodium improved to 122. IV fluids switched to D5 half NS. Continue 4 hourly sodium checks. Started on Megace/Cymbalta/trazodone. Was unable to sleep more than 3 hours last night. Remains anxious 01/11-patient doing well. Improved anxiety. Sodium at 127. Appetite improving. Ambulating with assistance. Concerns expressed with nursing staff. Episode of diarrhea today. Denies fever chills. Constitutional Vitals: Vital Signs Temp Pulse Resp BP Pulse Ox 98.0 F 82 18 122/62 100 01/12/20 04:01 01/12/20 10:01 01/12/20 04:00 01/12/20 10:01 01/12/20 10:01 Period Temp Pulse Resp BP Sys/Roberts Pulse Ox Last 24 Hr 98.0 F-98.7 F 58-101 16-25 118-152/60-74 96-100 Intake and Output 01/11/20 01/12/20 01/12/20 21:59 05:59 13:59 Intake Total 780 1520 Output Total 1050 425 Balance 780 470 -425 Weight 48.58 kg Alert oriented Improving anxiety Communicative and cooperative No lymphedema no telemetry events Intake & Output: Intake & Output 01/11/20 01/12/20 01/12/20 21:59 05:59 13:59 Intake Total 780 1520 Output Total 1050 425 Balance 780 470 -425 Weight 48.58 kg Intake: IV 1000 Dextrose 5%-1/2Ns IV Solution 1 1000 ,000 ml @ 50 mls/hr IV .Q20H [facility] Rx#:[id number] Oral 780 520 Output: Void Amount 1050 425 Other: Meal Dinner Percent of Meal Consumed 75% Feeding Ability Independent Urine Appearance Clear Clear Urine Color Bright Yellow Pale Urine Odor Strong Normal # Bowel Movements 0 OBJ DATA Labs CBC & Chem 7: 01/12/20 05:00 01/12/20 05:00 Labs: Abnormal Lab Results 01/12/20 01/12/20 01/11/20 05:00 05:00 20:03 RBC 2.95 L Hgb 9.6 L Hct 27.0 L POC Hct MCV RDW 11.0 L MPV 10.9 H POC Sodium Sodium 127 L 124 L POC Potassium Potassium POC Chloride Chloride Carbon Dioxide POC Total CO2 POC BUN BUN 3 L Creatinine 0.4 L POC Creatinine Osmolality Uric Acid 1.7 L Calcium POC WB Ioniz Calcium Phosphorus 2.5 L Magnesium 1.5 L Total Protein 5.1 L Globulin 1.6 L Urine Occult Blood Urine Osmolality 01/11/20 01/11/20 01/11/20 15:58 12:00 08:12 RBC Hgb Hct POC Hct MCV RDW MPV POC Sodium Sodium 120 L 123 L 124 L POC Potassium Potassium POC Chloride Chloride Carbon Dioxide POC Total CO2 POC BUN BUN Creatinine POC Creatinine Osmolality Uric Acid Calcium POC WB Ioniz Calcium Phosphorus Magnesium Total Protein Globulin Urine Occult Blood Urine Osmolality 01/11/20 01/11/20 01/11/20 05:05 05:05 01:15 RBC 3.13 L Hgb 10.0 L Hct 27.9 L POC Hct MCV RDW 10.6 L MPV POC Sodium Sodium 122 L 122 L POC Potassium Potassium POC Chloride Chloride 91 L Carbon Dioxide 21 L POC Total CO2 POC BUN BUN 5 L Creatinine 0.4 L POC Creatinine Osmolality Uric Acid 1.5 L Calcium 8.2 L POC WB Ioniz Calcium Phosphorus Magnesium Total Protein 5.3 L Globulin 1.8 L Urine Occult Blood Urine Osmolality 01/10/20 01/10/20 01/10/20 23:52 23:52 22:50 RBC Hgb Hct POC Hct MCV RDW MPV POC Sodium Sodium POC Potassium Potassium POC Chloride Chloride Carbon Dioxide POC Total CO2 POC BUN BUN Creatinine POC Creatinine Osmolality 257 L Uric Acid Calcium POC WB Ioniz Calcium Phosphorus Magnesium Total Protein Globulin Urine Occult Blood 0.2 A Urine Osmolality 71 L 01/10/20 01/10/20 01/10/20 22:20 21:38 20:16 RBC Hgb Hct POC Hct 33.0 L MCV RDW MPV POC Sodium 118 L* Sodium 113 L* POC Potassium 3.2 L Potassium 3.2 L POC Chloride 85 L Chloride 78 L Carbon Dioxide 21 L POC Total CO2 19 L POC BUN < 3 L BUN 2 L Creatinine 0.4 L POC Creatinine 0.2 L Osmolality Uric Acid Calcium POC WB Ioniz Calcium 1.08 L Phosphorus Magnesium 1.3 L Total Protein Globulin Urine Occult Blood Urine Osmolality 01/10/20 20:16 RBC Hgb Hct POC Hct MCV 103.5 H RDW 10.2 L MPV 10.6 H POC Sodium Sodium POC Potassium Potassium POC Chloride Chloride Carbon Dioxide POC Total CO2 POC BUN BUN Creatinine POC Creatinine Osmolality Uric Acid Calcium POC WB Ioniz Calcium Phosphorus Magnesium Total Protein Globulin Urine Occult Blood Urine Osmolality Meds: Medications Acetaminophen (Tylenol) 650 mg PO Q4-6HP PRN; Protocol PRN Reason: Per Pain Protocol/Fever > 101 Last Admin: 01/12/20 08:27 Dose: 650 mg Documented by: Albuterol Sulfate (Ventolin) 2 puff INH Q4-6HP PRN PRN Reason: Cough Bisacodyl (Dulcolax) 10 mg ID Q2-3DAYS PRN PRN Reason: Constipation Calcium/Vitamin D (Calcium W/Vit D3) 1,000 mg PO DAILY [facility] Last Admin: 01/12/20 09:10 Dose: 1,000 mg Documented by: Docusate Sodium (Colace) 100 mg PO BID [facility] Last Admin: 01/12/20 08:57 Dose: Not Given Documented by: Duloxetine HCl (Cymbalta) 30 mg PO DAILY [facility] Last Admin: 01/12/20 09:02 Dose: 30 mg Documented by: Ferrous Sulfate (Ferrous Sulfate) 325 mg PO [facility] Last Admin: 01/12/20 08:06 Dose: 325 mg Documented by: Heparin Sodium (Porcine) (Heparin) 5,000 unit SQ Q12 [facility] Last Admin: 01/12/20 08:54 Dose: 5,000 unit Documented by: Acetaminophen (Ofirmev) 650 mg in 65 mls @ 130 mls/hr IV Q6HP PRN; Protocol PRN Reason: Per Pain Protocol/Fever > 101 Magnesium Sulfate (Magnesium Sulfate) 2 gm in 50 mls @ 50 mls/hr IV UD PRN PRN Reason: MG = or < 1.7 Potassium Chloride 40 meq/ (Dextrose) 520 mls @ 130 mls/hr IV UD PRN PRN Reason: K+ = or < 3.5 Dextrose/Sodium Chloride (Dextrose 5%-1/2ns Iv Solution) 1,000 mls @ 50 mls/hr IV .Q20H [facility] Last Admin: 01/11/20 23:32 Dose: 50 mls/hr Documented by: Iron Carb/Multivit/[place]/Folic Acid (Multivitamin W/Minerals) 1 tab PO DAILY [facility] Last Admin: 01/12/20 08:54 Dose: 1 tab Documented by: Lisinopril (Zestril) 5 mg PO QDAY [facility] Last Admin: 01/12/20 09:03 Dose: 5 mg Documented by: Megestrol Acetate (Megace) 400 mg PO DAILY [facility] Last Admin: 01/12/20 08:52 Dose: 400 mg Documented by: Metoprolol Tartrate (Lopressor) 5 mg IV Q5M PRN PRN Reason: Heart Rate > 140 bpm Naproxen (Naprosyn) 250 mg PO Q4HP PRN PRN Reason: Pain Last Admin: 01/11/20 20:17 Dose: 250 mg Documented by: Omeprazole (Prilosec) 20 mg PO QAMAC [facility] Last Admin: 01/12/20 08:06 Dose: 20 mg Documented by: Ondansetron HCl (Zofran Odt) 4 mg SL Q4-6HP PRN; Protocol PRN Reason: Nausea And Vomiting Ondansetron HCl (Zofran) 4 mg IV Q4-6HP PRN; Protocol PRN Reason: Nausea And Vomiting Milk Thistle 350 Mg (Cap) 1 dose PO QDAY [facility] Last Admin: 01/11/20 09:09 Dose: Not Given Documented by: Polyethylene Glycol (Miralax) 17 gm PO DAILYP PRN PRN Reason: Constipation Potassium Chloride (Klor-Con) 40 meq PO DAILYP PRN PRN Reason: K+ < 3.5 Senna/Docusate Sodium (Senna Plus Tablet) 1 tab PO HS [facility] Last Admin: 01/11/20 20:16 Dose: Not Given Documented by: Simvastatin (Zocor) 10 mg PO QPM [facility] Last Admin: 01/11/20 20:17 Dose: 10 mg Documented by: Sodium Chloride (Saline Flush) 10 ml IV Q8 [facility] Last Admin: 01/12/20 06:02 Dose: 10 ml Documented by: Sodium Chloride (Sodium Chloride) 1 gm PO TID [facility] Last Admin: 01/12/20 09:04 Dose: 1 gm Documented by: Trazodone HCl (Desyrel) 50 mg PO HSP PRN PRN Reason: Insomnia Last Admin: 01/11/20 20:17 Dose: 50 mg Documented by: Vitamin D (Vitamin D3) 2,000 unit PO DAILY [facility] Last Admin: 01/12/20 09:09 Dose: 2,000 unit Documented by: Zolpidem Tartrate (Ambien) 5 mg PO HSP PRN PRN Reason: Insomnia A/P Narrative A/P Narrative: * hypovolemic hyponatremia-urine osmolarity appropriately low 71, sodium now 127. Sodium rise at goal. Secondary to poor solute intake. On salt tabs/regular diet * Failure to thrive/weakness deconditioning- complicated by grief/early depression. Improving with dietary intervention/anxiolytics/appetite stimulant * Acute grief reaction-loss of spouse. Continue Cymbalta/trazodone. * History of COPD stable on bronchodilators * History of hypertension continue lisinopril * Hyperlipidemia continue statin * GERD PPI * Tobacco dependence, nicotine patch/tobacco cessation counseling * Insomnia -start trazodone * Prophylaxis heparin Plan * Continue salt tabs * sodium checks * Continue antidepressants/appetite stimulants * PT OT/dietary intervention * Pre-existing medical condition management home meds * Discharge once sodium over 130 and clinically stable * Transfer to medical floor Time Spent With Patient Time: Total time spent is greater than 50% in coordination of care (as documented) at patient's floor/unit and/or counseling patient: QUALITY VTE Deep Vein Thrombosis/Pulmonary Embolism Present on Admission: No
[2020-01-12] MEDS: MILK THISTLE PO SCH (11:30)
[2020-01-12] MEDS ORDERED: ONDANSETRON 4 MG ODT TABLET SL PRN (13:27)
[2020-01-12] MEDS ORDERED: NAPROXEN 250 MG TABLET PO PRN (13:27)
[2020-01-12] MEDS ORDERED: POTASSIUM CHLORIDE 40 MEQ in DEXTROSE 5% IN WATER 500 ML IV PRN (13:27)
[2020-01-12] MEDS ORDERED: ACETAMINOPHEN 650 MG/65 ML BOTTLE IV PRN (13:27)
[2020-01-12] MEDS ORDERED: ALBUTEROL SULFATE 200 PUFF INHALER INH PRN (13:27)
[2020-01-12] MEDS ORDERED: BISACODYL 10 MG SUPP.RECT PR PRN (13:27)
[2020-01-12] MEDS ORDERED: MAGNESIUM SULFATE 2 GM/50 ML BAG IV PRN (13:27)
[2020-01-12] MEDS ORDERED: METOPROLOL TARTRATE 5 MG/5 ML VIAL IV PRN (13:27)
[2020-01-12] MEDS ORDERED: POTASSIUM CHLORIDE 20 MEQ PACKET PO PRN (13:27)
[2020-01-12] MEDS ORDERED: ONDANSETRON 4 MG/2 ML VIAL IV PRN (13:27)
[2020-01-12] MEDS: POLYETHYLENE GLYCOL 3350 17 GM PACKET PO PRN (15:50)
[2020-01-12] MEDS: DEXTROSE 5%-1/2NS 1,000 ML IV SCH (19:06)
[2020-01-12] MEDS: SENNOSIDES/DOCUSATE SODIUM 1 TAB TABLET PO SCH (20:47)
[2020-01-12] MEDS: traZODone HCL 50 MG TABLET PO PRN (20:48)
[2020-01-12] MEDS: SIMVASTATIN 10 MG TABLET PO SCH (20:48)
[2020-01-12] MEDS ORDERED: ZOLPIDEM 5 MG TABLET PO PRN (21:00)
[2020-01-13] MEDS: 0.9 % SODIUM CHLORIDE 10 ML SYRINGE IV SCH ×3 (05:21→20:17)
[2020-01-13 08:40] LABS: Hematocrit 28.6 % (34.1-44.9); Hemoglobin 9.8 g/dL (11.2-15.7); Mean Cell Volume 94.4 fL (80.0-100.0); Mean Corpuscular HGB Conc 34.3 g/dL (31.0-36.0); Mean Platelet Volume 10.7 fL (7.4-10.4); Platelet Count 176 K/mcL (140-440); RBC 3.03 M/mcL (3.59-5.38); Red Cell Distribution Width 11.6 % (11.5-14.5)
[2020-01-13] MEDS: FERROUS SULFATE 325 MG TABLET PO SCH (08:55)
[2020-01-13] MEDS: OMEPRAZOLE 20 MG CAPSULE PO SCH (08:56)
[2020-01-13] MEDS: DOCUSATE SODIUM 100 MG CAPSULE PO SCH ×2 (08:56→20:16)
[2020-01-13] MEDS: CALCIUM W/VIT D3 500 MG TABLET PO SCH (08:57)
[2020-01-13] MEDS: SODIUM CHLORIDE 1 GM TABLET PO SCH ×3 (08:58→20:17)
[2020-01-13] MEDS: MULTIVIT,THER IRON,CA,FA & MIN 1 TABLET PO SCH (08:58)
[2020-01-13] MEDS: DULoxetine 30 MG CAPSULE PO SCH (08:58)
[2020-01-13] MEDS: VITAMIN D3 1,000 UNIT TABLET PO SCH (08:59)
[2020-01-13] MEDS: LISINOPRIL 5 MG TABLET PO SCH (09:00)
[2020-01-13] MEDS: HEPARIN 5,000 UNIT/ML VIAL SQ SCH ×2 (09:03→20:17)
[2020-01-13] MEDS: MILK THISTLE PO SCH (09:05)
[2020-01-13 09:07] LABS: ALT/SGPT 11 U/l (0-40); AST/SGOT 13 U/l (0-37); Albumin 3.5 gm/dL (3.2-5.2); Albumin/Globulin Ratio 1.8 (1.0-2.3); Alkaline Phosphatase 51 U/L (39-117); Bilirubin,Direct < 0.2 mg/dL (0.0-0.3); Bilirubin,Total < 0.2 mg/dL (0.0-1.0); Calcium 8.8 mg/dl (8.6-10.4); Carbon Dioxide 22 mmol/L (22-30); Glomerular Filtration Rate 114; Glucose 91 mg/dL (70-105); Lactate Dehydrogenase 126 U/L (94-250); Phosphorous 2.4 mg/dL (2.7-4.5); Triglycerides 82 mg/dl (<150); Uric Acid 1.8 mg/dL (2.5-8.0)
[2020-01-13 09:08] LABS: Blood Urea Nitrogen 6 mg/dl (6-20); Chloride 93 mmol/L (96-108)
[2020-01-13] MEDS: ACETAMINOPHEN 325 MG TABLET PO PRN ×3 (09:09→18:05)
[2020-01-13] MEDS: MEGESTROL ACETATE 400 MG/10 ML ORAL.SUSP PO SCH (09:10)
[2020-01-13] MEDS: POLYETHYLENE GLYCOL 3350 17 GM PACKET PO PRN (09:11)
[2020-01-13 09:27] LABS: Lymphocytes % 47 % (15-49); Monocytes % (Manual) 6 % (1-12); Platelet Estimate NORMAL (NORMAL); RBC Morphology NORMAL (NORMAL); Reactive Lymphocytes 2 % (0-2); Segmented Neutrophils % 45 % (38-78)
--- NOTE | 2020-01-13 11:12 | Internal Med Progress Note ---
SUBJECTIVE Subjective Patient information: Note initiated : 01/13/20 at 11:08 am Service Date, if different from initiated Date: [] Patient: Cheri Brown a 59 y/o F admitted on 01/10/20 for fevers, high BP, and decreased appetite, headache. Chief Complaint: Ms. Brown is a 59 year old F with a history of COPD/HTN/HLD/tobacco dependence/depression who presents to the ER with multitude of symptoms including generalized weakness, malaise loss of appetite weakness and over 15 pound weight loss. Patient lost her in December and has been grief stricken. She has associated insomnia, anxiety. She also takes care of her elderly parents. She has continued to deteriorate the last couple of weeks prompting him to come to the ER for evaluation Initial work-up was consistent with sodium of 113/BMI of 19. She was administered 2 L crystalloid bolus. However in light of critical hyponatremia requiring admission Hospitalistservice was consulted At the time of my evaluation patient appears lethargic and withdrawn. Denies diarrhea, abdominal pain, dysuria, bloody stool. She also endorses to early satiety and feeling of nausea every time she attempts to eat but no actual emesis. Denies alcoholism but continues to smoke 01/10-patient clinically improved. Sodium improved to 122. IV fluids switched to D5 half NS. Continue 4 hourly sodium checks. Started on Megace/Cymbalta/traz odone. Was unable to sleep more than 3 hours last night. Remains anxious 01/11-patient doing well. Improved anxiety. Sodium at 127. Appetite improving. Ambulating with assistance. Concerns expressed with nursing staff. Episode of diarrhea today. Denies fever chills. 01/12-sodium at 126. Continue free water restriction/salt tabs. On dietary intervention/supplements per dietitian. Unable to sleep last night. Improved moods. No anxiety. Continue PT OT. Anticipate discharge in 24 hours once sodium around 130. Constitutional Vitals: Vital Signs Temp Pulse Resp BP Pulse Ox 97.6 F 80 20 159/78 97 01/13/20 04:00 01/13/20 04:00 01/13/20 04:00 01/13/20 04:00 01/13/20 00:00 Period Temp Pulse Resp BP Sys/Roberts Pulse Ox Last 24 Hr 97.6 F-99.9 F 78-93 18- 129-160/66-78 96-99 Intake and Output 01/12/20 01/13/20 01/13/20 21:59 05:59 13:59 Intake Total 360 1450 118 Balance 360 1450 118 Weight 49.527 kg Alert oriented Minimal anxiety Labored breathing No lymphedema Intake & Output: Intake & Output 01/12/20 01/13/20 01/13/20 21:59 05:59 13:59 Intake Total 360 1450 118 Balance 360 1450 118 Weight 49.527 kg Intake: Oral 360 1450 118 Other: Meal Dinner Percent of Meal Consumed 100% Feeding Ability Independent Urine Appearance Clear Clear Urine Color Bright Yellow Pale Urine Odor Normal Normal Stool Size Moderate Stool Color Green Stool Consistency Liquid Loose # Voids 3 1 OBJ DATA Labs CBC & Chem 7: 01/13/20 05:40 01/13/20 05:40 Labs: Abnormal Lab Results 01/13/20 01/13/20 01/12/20 05:40 05:40 05:00 RBC 3.03 L Hgb 9.8 L Hct 28.6 L POC Hct MCV RDW MPV 10.7 H POC Sodium Sodium 126 L 127 L POC Potassium Potassium POC Chloride Chloride 93 L Carbon Dioxide POC Total CO2 POC BUN BUN 3 L Creatinine 0.4 L 0.4 L POC Creatinine Osmolality Uric Acid 1.8 L 1.7 L Calcium POC WB Ioniz Calcium Phosphorus 2.4 L 2.5 L Magnesium 1.5 L 1.5 L GGT 38 H Total Protein 5.5 L 5.1 L Globulin 2.0 L 1.6 L Urine Occult Blood Urine Osmolality 01/12/20 01/11/20 01/11/20 05:00 20:03 15:58 RBC 2.95 L Hgb 9.6 L Hct 27.0 L POC Hct MCV RDW 11.0 L MPV 10.9 H POC Sodium Sodium 124 L 120 L POC Potassium Potassium POC Chloride Chloride Carbon Dioxide POC Total CO2 POC BUN BUN Creatinine POC Creatinine Osmolality Uric Acid Calcium POC WB Ioniz Calcium Phosphorus Magnesium GGT Total Protein Globulin Urine Occult Blood Urine Osmolality 01/11/20 01/11/20 01/11/20 12:00 08:12 05:05 RBC Hgb Hct POC Hct MCV RDW MPV POC Sodium Sodium 123 L 124 L 122 L POC Potassium Potassium POC Chloride Chloride 91 L Carbon Dioxide 21 L POC Total CO2 POC BUN BUN 5 L Creatinine 0.4 L POC Creatinine Osmolality Uric Acid 1.5 L Calcium 8.2 L POC WB Ioniz Calcium Phosphorus Magnesium GGT Total Protein 5.3 L Globulin 1.8 L Urine Occult Blood Urine Osmolality 01/11/20 01/11/20 01/10/20 05:05 01:15 23:52 RBC 3.13 L Hgb 10.0 L Hct 27.9 L POC Hct MCV RDW 10.6 L MPV POC Sodium Sodium 122 L POC Potassium Potassium POC Chloride Chloride Carbon Dioxide POC Total CO2 POC BUN BUN Creatinine POC Creatinine Osmolality 257 L Uric Acid Calcium POC WB Ioniz Calcium Phosphorus Magnesium GGT Total Protein Globulin Urine Occult Blood Urine Osmolality 01/10/20 01/10/20 01/10/20 23:52 22:50 22:20 RBC Hgb Hct POC Hct MCV RDW MPV POC Sodium Sodium POC Potassium Potassium POC Chloride Chloride Carbon Dioxide POC Total CO2 POC BUN BUN Creatinine POC Creatinine Osmolality Uric Acid Calcium POC WB Ioniz Calcium Phosphorus Magnesium 1.3 L GGT Total Protein Globulin Urine Occult Blood 0.2 A Urine Osmolality 71 L 01/10/20 01/10/20 01/10/20 21:38 20:16 20:16 RBC Hgb Hct POC Hct 33.0 L MCV 103.5 H RDW 10.2 L MPV 10.6 H POC Sodium 118 L* Sodium 113 L* POC Potassium 3.2 L Potassium 3.2 L POC Chloride 85 L Chloride 78 L Carbon Dioxide 21 L POC Total CO2 19 L POC BUN < 3 L BUN 2 L Creatinine 0.4 L POC Creatinine 0.2 L Osmolality Uric Acid Calcium POC WB Ioniz Calcium 1.08 L Phosphorus Magnesium GGT Total Protein Globulin Urine Occult Blood Urine Osmolality Meds: Medications Acetaminophen (Tylenol) 650 mg PO Q4-6HP PRN; Protocol PRN Reason: Per Pain Protocol/Fever > 101 Last Admin: 01/13/20 09:09 Dose: 650 mg Documented by: Albuterol Sulfate (Ventolin) 2 puff INH Q4-6HP PRN PRN Reason: Cough Bisacodyl (Dulcolax) 10 mg [place] Q2-3DAYS PRN PRN Reason: Constipation Calcium/Vitamin D (Calcium W/Vit D3) 1,000 mg PO DAILY [facility] Last Admin: 01/13/20 08:57 Dose: 1,000 mg Documented by: Docusate Sodium (Colace) 100 mg PO BID [facility] Last Admin: 01/13/20 08:56 Dose: 100 mg Documented by: Duloxetine HCl (Cymbalta) 30 mg PO DAILY [facility] Last Admin: 01/13/20 08:58 Dose: 30 mg Documented by: [facility]ous S[facility] ([facility]) [facility] Last Admin: 01/13/20 08:55 Dose: 325 mg Documented by: Heparin Sodium (Porcine) (Heparin) 5,000 unit SQ Q12 [facility] Last Admin: 01/13/20 09:03 Dose: 5,000 unit Documented by: Dextrose/Sodium Chloride (Dextrose 5%-1/2ns Iv Solution) 1,000 mls @ 50 mls/hr IV .Q20H [facility] Last Admin: 01/12/20 19:06 Dose: 50 mls/hr Documented by: Magnesium Sulfate (Magnesium Sulfate) 2 gm in 50 mls @ 50 mls/hr IV UD PRN PRN Reason: MG = or < 1.7 Potassium Chloride 40 meq/ (Dextrose) 520 mls @ 130 mls/hr IV UD PRN PRN Reason: K+ = or < 3.5 Acetaminophen (Ofirmev) 650 mg in 65 mls @ 130 mls/hr IV Q6HP PRN; Protocol PRN Reason: Per Pain Protocol/Fever > 101 Iron Carb/Multivit/[place]/Folic Acid (Multivitamin W/Minerals) 1 tab PO DAILY [facility] Last Admin: 01/13/20 08:58 Dose: 1 tab Documented by: Lisinopril (Zestril) 5 mg PO QDAY [facility] Last Admin: 01/13/20 09:00 Dose: 5 mg Documented by: Megestrol Acetate (Megace) 400 mg PO DAILY [facility] Last Admin: 01/13/20 09:10 Dose: 400 mg Documented by: Metoprolol Tartrate (Lopressor) 5 mg IV Q5M PRN PRN Reason: Heart Rate > 140 bpm Naproxen (Naprosyn) 250 mg PO Q4HP PRN PRN Reason: Pain Omeprazole (Prilosec) 20 mg PO QAMAC [facility] Last Admin: 01/13/20 08:56 Dose: 20 mg Documented by: Ondansetron HCl (Zofran Odt) 4 mg SL Q4-6HP PRN; Protocol PRN Reason: Nausea And Vomiting Ondansetron HCl (Zofran) 4 mg IV Q4-6HP PRN; Protocol PRN Reason: Nausea And Vomiting Milk Thistle 350 Mg (Cap) 1 dose PO QDAY [facility] Last Admin: 01/13/20 09:05 Dose: Not Given Documented by: Polyethylene Glycol (Miralax) 17 gm PO DAILYP PRN PRN Reason: Constipation Last Admin: 01/13/20 09:11 Dose: 17 gm Documented by: Potassium Chloride (Klor-Con) 40 meq PO DAILYP PRN PRN Reason: K+ < 3.5 Senna/Docusate Sodium (Senna Plus Tablet) 1 tab PO HS [facility] Last Admin: 01/12/20 20:47 Dose: 1 tab Documented by: Simvastatin (Zocor) 10 mg PO QPM [facility] Last Admin: 01/12/20 20:48 Dose: 10 mg Documented by: Sodium Chloride (Saline Flush) 10 ml IV Q8 [facility] Last Admin: 01/13/20 05:21 Dose: Not Given Documented by: Sodium Chloride (Sodium Chloride) 1 gm PO TID [facility] Last Admin: 01/13/20 08:58 Dose: 1 gm Documented by: Trazodone HCl (Desyrel) 50 mg PO HSP PRN PRN Reason: Insomnia Last Admin: 01/12/20 20:48 Dose: 50 mg Documented by: Vitamin D (Vitamin D3) 2,000 unit PO DAILY [facility] Last Admin: 01/13/20 08:59 Dose: 2,000 unit Documented by: Zolpidem Tartrate (Ambien) 5 mg PO HSP PRN PRN Reason: Insomnia A/P Narrative A/P Narrative: * hypovolemic hyponatremia-urine osmolarity appropriately low 71, sodium 126. Continue salt tabs/regular diet * Failure to thrive/weakness deconditioning- complicated by grief/early depression. Improving with dietary intervention/anxiolytics/appetite stimu lants * Acute grief reaction-loss of spouse. Continue Cymbalta/trazodone. * History of COPD stable on bronchodilators * History of hypertension stable on lisinopril * Hyperlipidemia continue statin * GERD PPI * Tobacco dependence, nicotine patch/tobacco cessation counseling * Insomnia -responding well to trazodone * Prophylaxis heparin Plan * Continue salt tabs 2 g 3 times a day * Continue antidepressants/appetite stimulants * PT OT/dietary intervention * Pre-existing medical condition management on home meds * Discharge once sodium over 130 and clinically stable * Transfer to medical floor Time Spent With Patient Time: Total time spent is greater than 50% in coordination of care (as documented) at patient's floor/unit and/or counseling patient: QUALITY VTE Deep Vein Thrombosis/Pulmonary Embolism Present on Admission: No
[2020-01-13] MEDS ORDERED: MAGNESIUM CITRATE 300 ML ORAL.SOL PO ONE (11:13)
[2020-01-13] MEDS: DEXTROSE 5%-1/2NS 1,000 ML IV SCH (17:55)
[2020-01-13] MEDS: SIMVASTATIN 10 MG TABLET PO SCH (20:16)
[2020-01-13] MEDS: SENNOSIDES/DOCUSATE SODIUM 1 TAB TABLET PO SCH (20:16)
[2020-01-13] MEDS: traZODone HCL 50 MG TABLET PO PRN (20:16)
[2020-01-14] MEDS: ACETAMINOPHEN 325 MG TABLET PO PRN ×2 (04:04→08:59)
[2020-01-14] MEDS: DEXTROSE 5%-1/2NS 1,000 ML IV SCH (05:50)
[2020-01-14 06:50] LABS: Hematocrit 26.8 % (34.1-44.9); Hemoglobin 9.6 g/dL (11.2-15.7); Mean Cell Volume 90.5 fL (80.0-100.0); Mean Corpuscular HGB Conc 35.8 g/dL (31.0-36.0); Mean Platelet Volume 10.1 fL (7.4-10.4); Platelet Count 180 K/mcL (140-440); RBC 2.96 M/mcL (3.59-5.38); Red Cell Distribution Width 11.5 % (11.5-14.5); WBC 8.5 K/mcL (4.50-11.00)
[2020-01-14 07:46] LABS: ALT/SGPT 14 U/l (0-40); AST/SGOT 16 U/l (0-37); Albumin 3.6 gm/dL (3.2-5.2); Albumin/Globulin Ratio 1.9 (1.0-2.3); Alkaline Phosphatase 52 U/L (39-117); Bilirubin,Direct < 0.2 mg/dL (0.0-0.3); Bilirubin,Total < 0.2 mg/dL (0.0-1.0); Blood Urea Nitrogen 7 mg/dl (6-20); Calcium 8.6 mg/dl (8.6-10.4); Carbon Dioxide 23 mmol/L (22-30); Chloride 98 mmol/L (96-108); Globulin 1.9 gm/dL (2.2-3.7); Glomerular Filtration Rate 114; Glucose 104 mg/dL (70-105); Lactate Dehydrogenase 126 U/L (94-250); Phosphorous 2.4 mg/dL (2.7-4.5); Triglycerides 68 mg/dl (<150); Uric Acid 1.7 mg/dL (2.5-8.0)
[2020-01-14] MEDS: POLYETHYLENE GLYCOL 3350 17 GM PACKET PO PRN (08:56)
[2020-01-14] MEDS: HEPARIN 5,000 UNIT/ML VIAL SQ SCH (08:56)
[2020-01-14] MEDS: MEGESTROL ACETATE 400 MG/10 ML ORAL.SUSP PO SCH (08:56)
[2020-01-14] MEDS: VITAMIN D3 1,000 UNIT TABLET PO SCH (08:58)
[2020-01-14] MEDS: SODIUM CHLORIDE 1 GM TABLET PO SCH (08:59)
[2020-01-14] MEDS: CALCIUM W/VIT D3 500 MG TABLET PO SCH (08:59)
[2020-01-14] MEDS: LISINOPRIL 5 MG TABLET PO SCH (09:00)
[2020-01-14] MEDS: DOCUSATE SODIUM 100 MG CAPSULE PO SCH (09:00)
[2020-01-14] MEDS: OMEPRAZOLE 20 MG CAPSULE PO SCH (09:00)
[2020-01-14] MEDS: 0.9 % SODIUM CHLORIDE 10 ML SYRINGE IV SCH (09:01)
[2020-01-14] MEDS: DULoxetine 30 MG CAPSULE PO SCH (09:01)
[2020-01-14] MEDS: FERROUS SULFATE 325 MG TABLET PO SCH (09:01)
[2020-01-14] MEDS: MILK THISTLE PO SCH (09:01)
[2020-01-14] MEDS: MULTIVIT,THER IRON,CA,FA & MIN 1 TABLET PO SCH (09:01)
[2020-01-14 09:10] LABS: Lymphocytes % 47 % (15-49); Monocytes % (Manual) 6 % (1-12); Platelet Estimate NORMAL (NORMAL); RBC Morphology NORMAL (NORMAL); Reactive Lymphocytes 2 % (0-2); Segmented Neutrophils % 45 % (38-78)
--- NOTE | 2020-01-14 09:58 | Discharge Summary ---
Discharge Provider Provider Patient information: Note initiated : 01/14/20 at 9:55 am Service Date, if different from initiated Date: [] Patient: Cheri Brown a 59 y/o F admitted on 01/10/20 for fevers, high BP, and decreased appetite, headache. Discharge diagnosis * Hypovolemic hyponatremia-secondary to low solute intake/inadequate diet. Resolved with regular diet/salt tabs supplements. Sodium at 131 up from 113 * Failure to thrive/weakness deconditioning- complicated by grief/early depres frank. Much improved with dietary intervention/anxiolytics/appetite stimulants. Continue nutrition support * Acute grief reaction-loss of spouse. Clinically improving on Cymbalta/trazodone. * History of COPD stable on bronchodilators * History of hypertension stable on lisinopril * Hyperlipidemia continue statin * GERD PPI * Tobacco dependence, nicotine patch/tobacco cessation counseling * Insomnia -responding well to trazodone Brief hospital course Ms. Brown is a 59 year old F with a history of COPD/HTN/HLD/tobacco dependence/depression who presents to the ER with multitude of symptoms includ ing generalized weakness, malaise loss of appetite weakness and over 15 pound weight loss. Patient lost her in December and has been grief stricken. She has associated insomnia, anxiety. She also takes care of her elderly parents. She has continued to deteriorate the last couple of weeks prompting him to come to the ER for evaluation Initial work-up was consistent with sodium of 113/BMI of 19. She was administered 2 L crystalloid bolus. However in light of critical hyponatremia requiring admission [facility] was consulted At the time of my evaluation patient appears lethargic and withdrawn. Denies diarrhea, abdominal pain, dysuria, bloody stool. She also endorses to early satiety and feeling of nausea every time she attempts to eat but no actual emesis. Denies alcoholism but continues to smoke 01/10-patient clinically improved. Sodium improved to 122. IV fluids switched to D5 half NS. Continue 4 hourly sodium checks. Started on Megace/Cymbalta/trazodone. Was unable to sleep more than 3 hours last night. Remains anxious 01/11-patient doing well. Improved anxiety. Sodium at 127. Appetite improving. Ambulating with assistance. Concerns expressed with nursing staff. Episode of diarrhea today. Denies fever chills. 8/9-sodium at 126. Continue free water restriction/salt tabs. On dietary intervention/supplements per dietitian. Unable to sleep last night. Improved moods. No anxiety. Continue PT OT. Anticipate discharge in 24 hours once sodium around 130. 8/10-patient doing remarkably better. Improved appetite. Tolerating diet. Moods improved with resolution of anxiety.Sodium at 131. Advised to continue regular salt diet. Discharging home with instructions as below Date of admission: 01/10/20 23:48 Discharge date: 01/14/20 Primary care physician: Angie Pacheco, DO Discharge Meds Discharge Medications Home Medications cholecalciferol (vitamin D3) 50 mcg (2,000 unit) capsule 2,000 unit PO QDAY 10/07/15 [History Confirmed 01/11/20 Last Taken 01/09/20 06:00] milk thistle 175 mg capsule 350 mg PO QDAY 10/07/15 [History Confirmed 01/11/20 Last Taken 01/09/20 08:00] albuterol sulfate 90 mcg/actuation aerosol inhaler 2 puff INHALATION Q4-6HP PRN #1 inhaler 04/04/19 [Rx Confirmed 01/11/20 Last Taken 01/09/20] ferrous sulfate 325 mg (65 mg iron) tablet 325 mg PO QDAY #90 tab 04/05/19 [Rx Confirmed 01/11/20 Last Taken 01/09/20 08:00] lisinopril 5 mg tablet 5 mg PO QDAY #90 tab 10/05/19 [Rx Confirmed 01/11/20 Last Taken 01/10/20 08:00] omeprazole 20 mg capsule,delayed release 20 mg PO QDAY #90 cap 12/31/19 [Rx Co nfirmed 01/11/20 Last Taken 01/09/20 08:00] simvastatin 10 mg tablet 10 mg PO QPM #90 tab 12/31/19 [Rx Confirmed 01/11/20 Last Taken 01/09/20 21:00] Alive Once Daily Women 50 Plus 1 tab PO DAILY 01/11/20 [History Confirmed 01/11/20 Last Taken 01/09/20 08:00] ibuprofen [Advil] 200 mg PO Q4-6HP PRN 01/11/20 [History Confirmed 01/11/20 Last Taken 01/10/20 17:00] duloxetine 30 mg PO DAILY #30 cap 01/14/20 [Rx Last Taken Unknown] megestrol 400 mg PO DAILY #14 ml 01/14/20 [Rx Last Taken Unknown] trazodone 50 mg PO HSP PRN #30 tab 01/14/20 [Rx Last Taken Unknown] COURSE Hospital Course Hospital course: . Discharge diagnosis: . Time Spent with Patient Time attestation: Total time spent providing and/or coordinating discharge services: EXAM Constitutional Vitals: Temp Pulse Resp BP Pulse Ox 98.4 F 71 16 132/74 97 01/14/20 06:48 01/14/20 06:48 01/14/20 06:48 01/14/20 06:48 01/14/20 06:48 Discharge Data Data Completed and Pending Labs on day of discharge: Labs from last 24 hours 01/14/20 01/14/20 05:25 05:25 WBC 8.5 RBC 2.96 L Hgb 9.6 L Hct 26.8 L MCV 90.5 MCH 32.4 MCHC 35.8 RDW 11.5 Plt Count 180 MPV 10.1 Total Counted 100 Seg Neutrophils % 45 Band Neutrophils % Not Reportable Lymphocytes % 47 Monocytes % (Manual) 6 Reactive Lymphocytes 2 Platelet Estimate Normal RBC Morphology Normal Sodium 131 L Potassium 3.7 Chloride 98 Carbon Dioxide 23 Anion Gap 10.0 BUN 7 Creatinine 0.4 L GFR Calculation 114 Glucose 104 Uric Acid 1.7 L Calcium 8.6 Phosphorus 2.4 L Magnesium 1.9 Total Bilirubin < 0.2 Direct Bilirubin < 0.2 GGT 49 H AST 16 ALT 14 Alkaline Phosphatase 52 Lactate Dehydrogenase 126 Total Protein 5.5 L Albumin 3.6 Globulin 1.9 L Albumin/Globulin Ratio 1.9 Triglycerides 68 Discharge Plan Patient/Caregiver Discharge Instructions Activity: increase activity as tolerated Diet: Regular Diet Activity Restrictions/Additional Instructions: Follow-up PCP in [5] days Continue trazodone/Cymbalta as advised Regular diet I recommend PCP to check BMP in 7 days Continue aggressive bowel regimen to prevent constipation Maintain fall precautions High protein calorie supplements All meals on chair sitting upright at 90 degrees to prevent aspiration Return to ER if concerning symptoms noted including worsening shortness of breath, fever chills, neurological changes, diarrhea, bleeding Refrain from smoking Continue diet and activity as advised Discussed importance of medication adherence Please review medication list with patient prior to discharge Please schedule follow-up with PCP/Providers prior to discharge and provide printouts Prescriptions: New megestrol 400 mg/10 mL (40 mg/mL) Suspension 400 mg PO DAILY Qty: 14 RF: 0 trazodone 50 mg Tablet 50 mg PO HSP PRN (Reason: Insomnia) Qty: 30 RF: 0 duloxetine 30 mg Capsule,Delayed Release(Dr/Ec) 30 mg PO DAILY Qty: 30 RF: 0 Continued ferrous sulfate [Iron (ferrous sulfate)] 325 mg (65 mg iron) tablet 325 mg PO QDAY Qty: 90 RF: 0 lisinopril 5 mg tablet 5 mg PO QDAY Qty: 90 RF: 1 simvastatin 10 mg tablet 10 mg PO QPM Qty: 90 RF: 0 omeprazole 20 mg capsule,delayed release(DR/EC) 20 mg PO QDAY Qty: 90 RF: 1 albuterol sulfate 90 mcg/actuation HFA aerosol inhaler 2 puff INHALATION Q4-6HP PRN (Reason: Cough) Qty: 1 RF: 0 cholecalciferol (vitamin D3) 2,000 unit capsule 2,000 unit PO QDAY RF: 0 milk thistle 175 mg capsule 350 mg PO QDAY RF: 0 Alive Once Daily Women 50 Plus 800-100 mcg Tablet 1 tab PO DAILY RF: 0 ibuprofen [Advil] 200 mg Tablet 200 mg PO Q4-6HP PRN (Reason: Pain) RF: 0 Follow Up Plan Follow up with: Angie Pacheco DO [Primary Care Provider] - Patient Disposition: Home, Self-Care Prognosis: Fair Rehab Potential: Fair I certify that the patient requires SNF services: No Overall status at discharge: patient is progressing back to baseline Discharge Orders: Discharge Order (Routine); Ordered 01/14/20 Ordered By: Aris BAER VTE Deep Vein Thrombosis/Pulmonary Embolism Present on Admission: No
== END 2020-01-14 12:08 | disposition home or self-care (01) | DRG 641 ==
LOC: ED 19:18 → ICU 23:48 → MEDSUR 01-12 17:39
PROVIDERS: ADMIT Internal Medicine; ATTEND Internal Medicine